=== PATIENT | female | born 1975 | race American Indian/Alaskan Native ===

== ENCOUNTER 2019-09-15 20:00 | Emergency (ER) | payer SELFPAY ==
[2019-09-15 20:50] VITALS: BP 142/70
--- NOTE | 2019-09-15 21:48 | XRay Report ---
LEFT TIBIA AND FIBULA 2 VIEWS INDICATION / CLINICAL INFORMATION: Upper tib/fib pain COMPARISON: None available. FINDINGS: BONES / JOINT(S): No acute fracture or subluxation. No significant arthritis. SOFT TISSUES: No significant abnormality. ADDITIONAL FINDINGS: None. Signer Name: Froilan Chase MD Signed: 09/15/2019 9:44 PM Workstation Name: [id number]
[2019-09-15] MEDS ORDERED: ONDANSETRON 4 MG ODT TAB PO ONE (22:20)
[2019-09-15] MEDS ORDERED: IBUPROFEN 600 MG TAB PO ONE (22:20)
[2019-09-15] MEDS ORDERED: HYDROcodone/ACETAMINOPHEN 5-325 MG TAB PO ONE (22:20)
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
== END 2019-09-15 23:15 | disposition home or self-care (01) ==
LOC: ED 20:00
DX: S86.912A Strain of unspecified muscle(s) and tendon(s) at lower leg level, left leg, initial encounter (principal); V89.2XXA Person injured in unspecified motor-vehicle accident, traffic, initial encounter; Y93.89 Activity, other specified; Y92.410 Unspecified street and highway as the place of occurrence of the external cause; Y99.8 Other external cause status
CPT/HCPCS: 99283; Q0162